=== PATIENT | male | born 1945 | race Caucasian/White ===

== ENCOUNTER 2018-08-16 05:15 | Emergency (ER) | payer MEDICARE ==
[~2018-08-16] VITALS: Ht 175.3 cm; Wt 87.5 kg
[~2018-08-16 05:15] MED LIST: ALPR0.254; ALPR0.254 PO; AMLO10TA6; CALC667T; DOXA2TAB2; FURO40TA4; HYDR-2868; LABE300T2; OLME1TAB51; PARI1CAP; SILV25CR7; SIMV40TA3; SODI15OR6; SODI650T; TRIA15CR3
--- NOTE | 2018-08-16 05:54 | PHYS DOC ---
Past Medical History Past Medical History: Anemia, Diabetes-Type II, High Cholesterol, Hypertension , Other Additional Past Medical Histor: BPH, HYPERKALEMIA Past Surgical History: Other Additional Past Surgical Histo: HERNIA REPAIR X2, PROSTATE SX, BACK SX Alcohol Use: None Drug Use: None Adult General Chief Complaint Chief Complaint: GI PROBLEM HPI HPI Patient is a 73-year-old male who presents with complaint of bloody stools this morning. Patient states that for the last couple of months he has had problems with loose stools but this morning stools have been bright red. He denies any abdominal pain or chest pain. He does admit to a cough and some shortness of breath but states the shortness of breath is chronic. He thinks that he is getting a bit of a cold however due to the cough. Patient states that he is on hospice for chronic kidney disease but states that he would still like to have this worked up because the rectal bleeding scared him. Patient states that nothing seems to worsen or improve his symptoms. Review of Systems Review of Systems Constitutional: Denies fever or chills [] Respiratory: Admits to cough and dyspnea on exertion[] Cardiovascular: Denies chest pain[] GI: Denies abdominal pain, nausea, vomiting. Complains of rectal bleeding [] Musculoskeletal: Denies back pain or joint pain [] All other systems were reviewed and found to be within normal limits, except as documented in this note. Current Medications Current Medications Current Medications Medications (Trade) Dose Ordered Sig/[facility] Start Time Stop Time Status Last Admin Dose Admin Sodium Chloride 500 ml @ 500 mls/hr Q1H 08/16/18 06:00 08/16/18 06:00 DC 08/16/18 05:55 500 MLS/HR Allergies Allergies Allergies Coded Allergies Type Severity Reaction Last Updated Verified No Known Drug Allergies 01/19/18 No Physical Exam Physical Exam Constitutional: Well developed, well nourished, no acute distress, non-toxic appearance. [] HENT: Normocephalic, atraumatic, bilateral external ears normal, oropharynx dry , nose normal. [] Eyes: PERRLA, EOMI, conjunctiva normal, no discharge. [] Neck: Normal range of motion, no tenderness, supple. [] Cardiovascular:Heart rate regular rhythm [] Lungs & Thorax: Fine rhonchi are noted in the bilateral lung bases[] Abdomen: Bowel sounds normal, soft, no tenderness. Rectal exam demonstrates [place] bright red blood [] Skin: Warm, dry. [] Extremities: Moderate, 2-3+ pitting edema is noted to lower extremities bilaterally. [] Neurologic: Alert and oriented, no focal deficits noted. [] Current Patient Data Vital Signs Vital Signs Date Time Temp Pulse Resp B/P (MAP) Pulse Ox O2 Delivery O2 Flow Rate FiO2 08/16/18 05:50 98.6 58 18 164/80 (108) 93 Room Air 98.6 Lab Values Laboratory Tests Test 08/16/18 05:40 White Blood Count 5.4 x10^3/uL (4.0-11.0) Red Blood Count 2.85 x10^6/uL (4.30-5.70) L Hemoglobin 8.6 g/dL (13.0-17.5) L Hematocrit 26.0 % (39.0-53.0) L Mean Corpuscular Volume 91 fL (79-100) Mean Corpuscular Hemoglobin 30 pg (25-35) Mean Corpuscular Hemoglobin Concent 33 g/dL (31-37) Red Cell Distribution Width 16.5 % (11.5-14.5) H Platelet Count 159 x10^3/uL (140-400) Neutrophils (%) (Auto) 76 % (31-73) H Lymphocytes (%) (Auto) 11 % (24-48) L Monocytes (%) (Auto) 7 % (0-9) Eosinophils (%) (Auto) 6 % (0-3) H Basophils (%) (Auto) 1 % (0-3) Neutrophils # (Auto) 4.1 x10^3uL (1.8-7.7) Lymphocytes # (Auto) 0.6 x10^3/uL (1.0-4.8) L Monocytes # (Auto) 0.4 x10^3/uL (0.0-1.1) Eosinophils # (Auto) 0.3 x10^3/uL (0.0-0.7) Basophils # (Auto) 0.1 x10^3/uL (0.0-0.2) Prothrombin Time 15.9 SEC (11.7-14.0) H Prothrombin Time INR 1.3 (0.8-1.1) H PTT 34 SEC (24-38) Sodium Level 145 mmol/L (136-145) Potassium Level 4.4 mmol/L (3.5-5.1) Chloride Level 105 mmol/L (98-107) Carbon Dioxide Level 24 mmol/L (21-32) Anion Gap 16 (6-14) H Blood Urea Nitrogen 108 mg/dL (8-26) H Creatinine 8.2 mg/dL (0.7-1.3) H Estimated GFR (Cockcroft-Gault) 6.4 BUN/Creatinine Ratio 13 (6-20) Glucose Level 101 mg/dL (70-99) H Calcium Level 8.2 mg/dL (8.5-10.1) L Magnesium Level 1.9 mg/dL (1.8-2.4) Total Bilirubin 0.4 mg/dL (0.2-1.0) Aspartate Amino Transferase (AST) 17 U/L (15-37) Alanine Aminotransferase (ALT) 23 U/L (16-63) Alkaline Phosphatase 153 U/L (46-116) H DJ-Now-P-Type Natriuretic Peptide 19748 pg/mL (0-124) H Total Protein 7.3 g/dL (6.4-8.2) Albumin 3.3 g/dL (3.4-5.0) L Albumin/Globulin Ratio 0.8 (1.0-1.7) L Laboratory Tests 08/16/18 05:40 Laboratory Tests 08/16/18 05:40 EKG EKG [] Radiology/Procedures Radiology/Procedures [] Course & Med Decision Making Course & Med Decision Making Pertinent Labs and Imaging studies reviewed. (See chart for details) [Patient on hospice for chronic kidney failure and kidney related disease. Patient with bright red rectal bleeding in ED. He is also found to be in congestive heart failure. Admission offered for evaluation regarding dialysis and rectal bleeding declined. He verbalizes understands and is medical conditions can be imminently fatal.The patient states he felt nervous and scared but prefers to go home and resume hospice and PCP. ] Dragon Disclaimer Dragon Disclaimer This electronic medical record was generated, in whole or in part, using a voice recognition dictation system. Departure Departure Referrals: BERNICE LEONE Jr, MD (PCP) SPENCER COLBERT Jr. DO Aug 16, 2018 05:54 MERCY NÚÑEZ DO Aug 16, 2018 07:10
[2018-08-16 06:00] LABS: BASO # 0.1 x10^3/uL (0.0-0.2); BASO % 1 % (0-3); EOS # 0.3 x10^3/uL (0.0-0.7); EOS % 6 % (0-3); HEMOGLOBIN 8.6 g/dL (13.0-17.5); LYMPH # 0.6 x10^3/uL (1.0-4.8); LYMPH % 11 % (24-48); MEAN CORPUSCULAR HEMOGLOBIN 30 pg (25-35); MEAN CORPUSCULAR HGB CONC 33 g/dL (31-37); MEAN CORPUSCULAR VOLUME 91 fL (79-100); MONO # 0.4 x10^3/uL (0.0-1.1); MONO % 7 % (0-9); NEUT # 4.1 x10^3uL (1.8-7.7); NEUT % 76 % (31-73); PLATELET COUNT 159 x10^3/uL (140-400); RED BLOOD COUNT 2.85 x10^6/uL (4.30-5.70); RED CELL DISTRIBUTION WIDTH 16.5 % (11.5-14.5); WHITE BLOOD COUNT 5.4 x10^3/uL (4.0-11.0)
[2018-08-16] MEDS ORDERED: IV NORMAL SALINE 500ML BAG 500 ML IV SCH (06:00)
--- NOTE | 2018-08-16 06:03 | EKG ---
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
[2018-08-16 06:04] LABS: CALCIUM 8.2 mg/dL (8.5-10.1); CREATININE 8.2 mg/dL (0.7-1.3); GFR 6.4; POTASSIUM 4.4 mmol/L (3.5-5.1)
[2018-08-16 06:10] LABS: ALBUMIN 3.3 g/dL (3.4-5.0); ALBUMIN/GLOBULIN RATIO 0.8 (1.0-1.7); MAGNESIUM 1.9 mg/dL (1.8-2.4); TOTAL BILIRUBIN 0.4 mg/dL (0.2-1.0); TOTAL PROTEIN 7.3 g/dL (6.4-8.2)
[2018-08-16 06:16] LABS: PROTHROMBIN TIME PATIENT 15.9 SEC (11.7-14.0)
--- NOTE | 2018-08-16 06:20 | RAD ---
Chest AP portable at 0605: Reason for examination: cough and shortness of breath. Comparison is made to previous study dated 01/19/2018. The heart size continues to be enlarged. Mediastinum is unremarkable. Lung urena show right perihilar and lower lobe infiltrates and a moderate sized right pleural effusion. Calcified granuloma is again seen in the right apex. Left lung field is clear. No acute bony abnormalities are seen. IMPRESSION: Cardiomegaly. Right perihilar and lower lobe infiltrates with a moderate size right pleural effusion. Electronically signed by: Tamika Acevedo MD (08/16/2018 6:17 AM) [facility]
[2018-08-16 09:00] VITALS: BP 162/76
== END 2018-08-16 09:11 | disposition home or self-care (01) ==
LOC: ER 05:49
DX: E11.22 Type 2 diabetes mellitus with diabetic chronic kidney disease (principal); I13.0 Hypertensive heart and chronic kidney disease with heart failure and stage 1 through stage 4 chronic kidney disease, or unspecified chronic kidney disease; N18.9 Chronic kidney disease, unspecified; E78.00 Pure hypercholesterolemia, unspecified; I50.9 Heart failure, unspecified; R05 Cough; R06.02 Shortness of breath; N40.0 Benign prostatic hyperplasia without lower urinary tract symptoms; Z98.890 Other specified postprocedural states
CPT/HCPCS: 36415; 71045; 80053; 83735; 83880; 85025; 85610; 85730; 86850; 86900; 86901; 93005; 99285; J7040; 96360